=== PATIENT | male | born 1960 | race Caucasian/White ===

== ENCOUNTER 2024-10-21 11:14 | Outpatient (RCR) | payer MEDICARE, SELFPAY | END 2024-10-21 23:59 | disposition home or self-care (01) | LOC: RPT 11:14 | PROVIDERS: ATTENDING PHYSICIAN Orthopaedic Surgery; FAMILY PHYSICIAN Internal Medicine | DX: Z47.89 Encounter for other orthopedic aftercare (principal); S46.011D Strain of muscle(s) and tendon(s) of the rotator cuff of right shoulder, subsequent encounter; Z73.6 Limitation of activities due to disability; M62.81 Muscle weakness (generalized) | CPT/HCPCS: 97110; 97112; 97140; 97162 ==